=== PATIENT | male | born 1960 | race Caucasian/White ===

== ENCOUNTER 2022-12-02 06:28 | Observation (INO) ==
[~2022-12-02 06:28] MED LIST: Buffered Lidocaine 1% SYRIN 1 ml INTRADERM ONE; Lactated Ringers 1000 ml BAG 1,000 ML IV SCH
[2022-12-02] MEDS ORDERED: ceFAZolin 2 GM PREMIX 2 GM/50 ML BAG ONE (06:58)
[2022-12-02] MEDS ORDERED: ROPIVACAINE 5 MG/ML 30 ML BTL (0.5%) ONE ×3 (07:46→09:01)
[2022-12-02] MEDS ORDERED: Midazolam 2 mg/2 ml VIAL 1 mg/ml 2 ml VIAL (2 mg) ONE ×2 (08:04→09:19)
[2022-12-02] MEDS ORDERED: Naloxone 0.4 mg VIAL 0.4 mg/ml 1 ml VIAL IV PRN (08:55)
[2022-12-02] MEDS ORDERED: Ondansetron 4 mg VIAL 2 MG/ML 2 ml VIAL IV PRN ×2 (08:55→12:07)
[2022-12-02] MEDS ORDERED: fentaNYL 100 mcg/2 ml 50 MCG/ML VIAL IV PRN (08:55)
[2022-12-02] MEDS ORDERED: Acetaminophen IV 1 GM/100ML 1,000 MG/100 ML BAG IV PRN (08:55)
[2022-12-02] MEDS ORDERED: HYDROmorphone 1 MG/1 ML SYRINGE IV PRN (08:55)
[2022-12-02] MEDS ORDERED: fentaNYL 100 mcg/2 ml 50 MCG/ML VIAL ONE (09:34)
[2022-12-02] MEDS ORDERED: Ketamine HCL 50 mg/ml 10 ml VIAL (500 MG) ONE (09:46)
[2022-12-02] MEDS ORDERED: Glycopyrrolate IV 0.2 MG/ML 1 ML VIAL ONE (09:46)
[2022-12-02] MEDS ORDERED: Propofol 10 MG/ML 20 ML BTL ONE ×4 (10:13→11:45)
[2022-12-02] MEDS ORDERED: Ondansetron 4 mg VIAL 2 MG/ML 2 ml VIAL ONE (10:20)
[2022-12-02] MEDS ORDERED: Dexamethasone IV 4 MG/ML VIAL 1 ml VIAL ONE (10:20)
[2022-12-02] MEDS ORDERED: Lidocaine 2% PF 5 ML VIAL ONE (11:01)
[2022-12-02] MEDS ORDERED: Lactulose 30 ml UDC PO PRN (12:07)
[2022-12-02] MEDS ORDERED: Ondansetron ODT 4 mg TAB 4 MG TAB PO PRN (12:07)
[2022-12-02] MEDS ORDERED: Morphine 2 MG/ML SYRINGE IV PRN (12:07)
[2022-12-02] MEDS ORDERED: Magnesium Hydroxide LIQ 30 ML UDC PO PRN (12:07)
[2022-12-02] MEDS ORDERED: Acetaminophen IV 1 GM/100ML 1,000 MG/100 ML BAG IV ONE (12:15)
[2022-12-02] MEDS: Lactated Ringers 1000 ml BAG 1,000 ML IV SCH (14:38)
[2022-12-02] MEDS: ceFAZolin 1 GM ADVAN 1 GM in NS 0.9% 50 ML 50 ML IVPB SCH (17:40)
[2022-12-02] MEDS: Magnesium Hydroxide LIQ 30 ML UDC PO SCH (22:15)
[2022-12-03] MEDS: ceFAZolin 1 GM ADVAN 1 GM in NS 0.9% 50 ML 50 ML IVPB SCH ×2 (01:16→09:24)
[2022-12-03] MEDS: Lactated Ringers 1000 ml BAG 1,000 ML IV SCH (01:17)
[2022-12-03 06:44] LABS: Hematocrit 37 % (42-52); Hemoglobin 12.6 g/dL (14.0-18.0); Mean Platelet Volume 8.3 fL (7.4-10.4); Platelet Count 196 10^3/uL (150-450)
[2022-12-03 07:12] LABS: Calcium 8.7 mg/dL (8.6-10.3); Creatinine, Serum 0.98 mg/dL (0.67-1.17); Potassium 4.2 mmol/L (3.5-5.0); eGFR CKD-EPI 86.1 (>60)
[2022-12-03] MEDS ORDERED: Vitamin THERAPEUTIC TAB PO SCH (09:00)
[2022-12-03] MEDS: Magnesium Hydroxide LIQ 30 ML UDC PO SCH (10:35)
[2022-12-03 11:22] VITALS: BP 158/84
== END 2022-12-03 11:45 | disposition home or self-care (01) ==
LOC: INTOOBSV 06:28 → AA 06:28 → SSU 14:06
PROVIDERS: ADMIT Orthopaedic Surgery Adult Reconstructive Orthopaedic Surgery; ATTEND Orthopaedic Surgery Adult Reconstructive Orthopaedic Surgery